=== PATIENT | male | born 1970 ===

== ENCOUNTER 2024-11-02 08:20 | Emergency (ER) | payer OTHER, SELFPAY ==
--- NOTE | ~2024-11-02 | XR_ITS ---
EXAMINATION: XR LEFT SHOULDER, RIGHT ANKLE, LUMBAR SPINE CLINICAL INFORMATION: Fall, pain. COMPARISON: None available. TECHNIQUE: 3 views left shoulder, 3 views right ankle, 3 views lumbar spine. FINDINGS: LEFT SHOULDER: Moderate degenerative changes in the acromioclavicular joint with joint space narrowing and hypertrophic change. Mild degenerative changes in the glenohumeral joint with inferior hypertrophic change. Glenohumeral alignment is preserved. LUMBAR SPINE: Minimal dextroscoliosis of the lumbar spine. Degenerative changes in the bilateral sacroiliac joints. Facet arthritis in the osw-uy-aehbl lumbar spine. Multilevel lumbar spondylosis with loss of disc space height most notable at L4-L5. Grade 1 retrolisthesis of L4 and L5. RIGHT ANKLE: Prominent plantar and posterior calcaneal spurring. Faint calcific/ossific densities along the plantar aspect of the calcaneus. Advanced degenerative changes with hypertrophic change along the dorsal aspect of the talonavicular joint. Degenerative changes on limited views of the midfoot and tarsometatarsal joints. Ankle joint effusion. Multiple ossific fragments inferior to the bilateral malleoli may represent avulsion fracture fragments of indeterminate age. Correlation with clinical exam recommended to determine further management. Base of the fifth metatarsal appears irregular on views provided, possibly related to positioning and dedicated views of the foot should be considered for further evaluation. XR/XR shoulder LT min 2V IMPRESSION: 1. Moderate degenerative changes in the left acromioclavicular joint and mild degenerative changes in the glenohumeral joint with inferior hypertrophic change. Glenohumeral alignment is preserved. 2. Degenerative changes in the bilateral sacroiliac joints. 3. Facet arthritis in the kyv-cl-qmhag lumbar spine. 4. Multilevel lumbar spondylosis with loss of disc space height most notable at L4-L5. Grade 1 retrolisthesis of L4 and L5. 5. Prominent plantar and posterior calcaneal spurring. Faint calcific/ossific densities along the plantar aspect of the calcaneus. 6. Advanced degenerative changes in the partially-imaged foot and ankle as detailed above. 7. Multiple ossific fragments inferior to the bilateral malleoli of the right ankle may represent avulsion fracture fragments of indeterminate age. Ankle joint effusion with soft tissue swelling. Correlation with clinical exam recommended to determine further management. 8. Base of the fifth metatarsal appears irregular on the views provided, possibly related to positioning and dedicated views of the foot should be considered for further evaluation. This study was presented today to November 02, 2024 for interpretation. Stat results provided at this time as requested by referring provider. Electronically signed by: Jess Abad MD 11/02/2024 09:41 AM [facility]
--- NOTE | ~2024-11-02 | CT_ITS ---
EXAMINATION: CT CERVICAL SPINE WITHOUT CONTRAST CLINICAL INFORMATION: Pain after falling. Head strike. COMPARISON: None available. TECHNIQUE: Thin section axial imaging with sagittal and coronal reformats. This CT examination was performed using dose optimization techniques as appropriate, variously including the following: *Automated exposure control *Adjustment of mA and/or kV according to patient size (this includes techniques or standardized protocols for targeted exams where dose is matched to indication/reason for exam; i.e. extremities or head) *Use of iterative reconstruction technique DLP: 589.33 mGy-cm FINDINGS: Degenerative changes observed predominantly at the C4-5 and C6-7 levels. Anterior spurring at C4-C6. There is no fracture or destructive process or alignment abnormality. Calcification of the posterior spinal ligament noted. This creates mild spinal stenosis from the C2-C4 level. No acute findings. The prevertebral soft tissues are normal. CT/CT cervical spine wo IV con IMPRESSION: No fracture. Fleischner guidelines were followed. Electronically signed by: Johnie Pathak MD 11/02/2024 12:57 PM [facility]
--- NOTE | ~2024-11-02 | XR_ITS ---
EXAMINATION: XR LEFT SHOULDER, RIGHT ANKLE, LUMBAR SPINE CLINICAL INFORMATION: Fall, pain. COMPARISON: None available. TECHNIQUE: 3 views left shoulder, 3 views right ankle, 3 views lumbar spine. FINDINGS: LEFT SHOULDER: Moderate degenerative changes in the acromioclavicular joint with joint space narrowing and hypertrophic change. Mild degenerative changes in the glenohumeral joint with inferior hypertrophic change. Glenohumeral alignment is preserved. LUMBAR SPINE: Minimal dextroscoliosis of the lumbar spine. Degenerative changes in the bilateral sacroiliac joints. Facet arthritis in the moa-tp-lfuwv lumbar spine. Multilevel lumbar spondylosis with loss of disc space height most notable at L4-L5. Grade 1 retrolisthesis of L4 and L5. RIGHT ANKLE: Prominent plantar and posterior calcaneal spurring. Faint calcific/ossific densities along the plantar aspect of the calcaneus. Advanced degenerative changes with hypertrophic change along the dorsal aspect of the talonavicular joint. Degenerative changes on limited views of the midfoot and tarsometatarsal joints. Ankle joint effusion. Multiple ossific fragments inferior to the bilateral malleoli may represent avulsion fracture fragments of indeterminate age. Correlation with clinical exam recommended to determine further management. Base of the fifth metatarsal appears irregular on views provided, possibly related to positioning and dedicated views of the foot should be considered for further evaluation. XR/XR ankle RT min 3V IMPRESSION: 1. Moderate degenerative changes in the left acromioclavicular joint and mild degenerative changes in the glenohumeral joint with inferior hypertrophic change. Glenohumeral alignment is preserved. 2. Degenerative changes in the bilateral sacroiliac joints. 3. Facet arthritis in the ezo-xr-dzlou lumbar spine. 4. Multilevel lumbar spondylosis with loss of disc space height most notable at L4-L5. Grade 1 retrolisthesis of L4 and L5. 5. Prominent plantar and posterior calcaneal spurring. Faint calcific/ossific densities along the plantar aspect of the calcaneus. 6. Advanced degenerative changes in the partially-imaged foot and ankle as detailed above. 7. Multiple ossific fragments inferior to the bilateral malleoli of the right ankle may represent avulsion fracture fragments of indeterminate age. Ankle joint effusion with soft tissue swelling. Correlation with clinical exam recommended to determine further management. 8. Base of the fifth metatarsal appears irregular on the views provided, possibly related to positioning and dedicated views of the foot should be considered for further evaluation. This study was presented today to November 02, 2024 for interpretation. Stat results provided at this time as requested by referring provider. Electronically signed by: Jess Abad MD 11/02/2024 09:41 AM [facility]
--- NOTE | ~2024-11-02 | CT_ITS ---
EXAMINATION: CT HEAD WITHOUT CONTRAST CLINICAL INFORMATION: Head strike. Fall COMPARISON: None available. TECHNIQUE: Contiguous axial imaging was performed from the skull base to vertex without intravenous administration of contrast. This CT examination was performed using dose optimization techniques as appropriate, variously including the following: *Automated exposure control *Adjustment of mA and/or kV according to patient size (this includes techniques or standardized protocols for targeted exams where dose is matched to indication/reason for exam; i.e. extremities or head) *Use of iterative reconstruction technique DLP: 844 mGy-cm FINDINGS: No intra or extra-axial fluid collection or hemorrhage, mass, or mass effect. Calvarium intact. CT/CT head/brain wo IV con IMPRESSION: No acute intracranial pathology. Electronically signed by: Johnie Pathak MD 11/02/2024 01:06 PM [facility]
--- NOTE | ~2024-11-02 | XR_ITS ---
EXAMINATION: XR LEFT SHOULDER, RIGHT ANKLE, LUMBAR SPINE CLINICAL INFORMATION: Fall, pain. COMPARISON: None available. TECHNIQUE: 3 views left shoulder, 3 views right ankle, 3 views lumbar spine. FINDINGS: LEFT SHOULDER: Moderate degenerative changes in the acromioclavicular joint with joint space narrowing and hypertrophic change. Mild degenerative changes in the glenohumeral joint with inferior hypertrophic change. Glenohumeral alignment is preserved. LUMBAR SPINE: Minimal dextroscoliosis of the lumbar spine. Degenerative changes in the bilateral sacroiliac joints. 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 Multilevel lumbar spondylosis with loss of disc space height most notable at L4-L5. Grade 1 retrolisthesis of L4 and L5. RIGHT ANKLE: Prominent plantar and posterior calcaneal spurring. Faint calcific/ossific densities along the plantar aspect of the calcaneus. Advanced degenerative changes with hypertrophic change along the dorsal aspect of the talonavicular joint. Degenerative changes on limited views of the midfoot and tarsometatarsal joints. Ankle joint effusion. Multiple ossific fragments inferior to the bilateral malleoli may represent avulsion fracture fragments of indeterminate age. Correlation with clinical exam recommended to determine further management. Base of the fifth metatarsal appears irregular on views provided, possibly related to positioning and dedicated views of the foot should be considered for further evaluation. XR/XR lumbar spine 2-3V IMPRESSION: 1. Moderate degenerative changes in the left acromioclavicular joint and mild degenerative changes in the glenohumeral joint with inferior hypertrophic change. Glenohumeral alignment is preserved. 2. Degenerative changes in the bilateral sacroiliac joints. 3. Facet arthritis in the [id number] lumbar spine. 4. Multilevel lumbar spondylosis with loss of disc space height most notable at L4-L5. Grade 1 retrolisthesis of L4 and L5. 5. Prominent plantar and posterior calcaneal spurring. Faint calcific/ossific densities along the plantar aspect of the calcaneus. 6. Advanced degenerative changes in the partially-imaged foot and ankle as detailed above. 7. Multiple ossific fragments inferior to the bilateral malleoli of the right ankle may represent avulsion fracture fragments of indeterminate age. Ankle joint effusion with soft tissue swelling. Correlation with clinical exam recommended to determine further management. 8. Base of the fifth metatarsal appears irregular on the views provided, possibly related to positioning and dedicated views of the foot should be considered for further evaluation. This study was presented today to November 02, 2024 for interpretation. Stat results provided at this time as requested by referring provider. Electronically signed by: Jess Abad MD 11/02/2024 09:41 AM [place]
[2024-11-02 08:25] VITALS: BP 155/83; PULSE 83; RESP 16; TEMP 36.6; O2SAT 96; BMI 33.7
[2024-11-02] MEDS: Acetaminophen 325 MG TABLET 975 MG PO (09:31)
--- NOTE | 2024-11-02 09:39 | ED.FALL ---
HPI - Fall General Chief Complaint: Fall Stated Complaint: Fall down stairs work inj Time Seen by Provider: 11/02/24 08:51 Source: patient and RN notes reviewed Mode of arrival: ambulatory Limitations: no limitations History of Present Illness ED Provider: Joanne Tavarez PA-C HPI Narrative: This is a [id number]-male, with a hx of crohn's disease and left ventricular hypertrophy on carvedilol, who presents to the ER with complaints of left shoulder pain, back pain, and right ankle pain status post mechanical fall which occurred at work today. Patient states that approximately 2 hours prior to his arrival, he accidentally was running down his stairs at work and slipped backwards, landing with his leg underneath him, and striking his left shoulder onto the stair. He states that he also struck the back of his head. He was wearing a hard had at the time. He reports no loss of consciousness. He does report that he felt slightly lightheaded after the fall. He states that he currently has a slight headache, denies reporting that this is the worst headache of his life. Denies any vision changes, chest pain, shortness of breath. He states that he has had intermittent tingling in his left shoulder since the injury. He also reports that he has had pain to his right ankle, states the pain worsens with movement and with weight-bearing. He was able to slightly bear weight on his right ankle after the fall. He has a history of previous injuries to his right ankle in the past. He is not on anticoagulation. No other complaints or concerns at this time. MD complaint: fall Onset (ago): day(s) Fall from: down stairs (#) (1) Fall witnessed: no Place fall occurred: work Loss of consciousness: none Prolonged down time: no Symptoms prior to fall: none Context: tripped/slipped Related Data Allergies Allergy/AdvReac Type Severity Reaction Status Date / Time No Known Allergies Allergy Verified 11/02/24 08:28 Review of Systems Review of Systems: Yes all other systems are reviewed and are negative Constitutional: Constitutional: Reports as per [facility] Social History Social History Advance Directives: No Advance Directives Information Provided: Yes Physical Exam Vital Signs: Vital Signs: Last Vital Signs Temp 97.7 F 11/02/24 14:43 Pulse 65 11/02/24 14:43 Resp 13 11/02/24 14:43 BP 138/73 11/02/24 14:43 Pulse Ox 99 11/02/24 14:43 O2 Del Method Room Air 11/02/24 14:43 BMI result Body Mass Index 33.7 Const: General: cooperative, comfortable and no acute distress Orientation/consciousness: patient oriented x3 Limitations: no limitations HEENT: Head: Yes normal to inspection, Yes normocephalic and Yes atraumatic Ears: hearing grossly normal bilaterally General nose exam: Normal external nose present Face and sinus: Yes normal facial exam Mouth: Normal oral and palatal mucosa present, oropharynx normal and moist mucous membranes Throat: Yes posterior oropharynx normal Eyes: General: appearance normal, both eyes and all related structures Eyelids: Yes eyelids normal Conjunctivae: conjunctivae normal Sclerae: sclerae normal Pupils: Equal, round and reactive pupils present EOM: EOMs intact bilaterally Neck: Neck: Yes normal visual inspection, Yes full ROM and Yes no lymphadenopathy Lymphatic: no lymphadenopathy noted Chest: Chest palpation & inspection: normal inspection of the chest Resp: Effort & Inspection: normal respiratory effort and able to speak in complete sentences Auscultation: clear to auscultation bilaterally, no crackles, no rales, no rhonchi and no wheezes Cardio: Rate: regular rate Rhythm: regular rhythm Heart sounds: S1 normal heart sound present and S2 normal heart sound present GI: Inspection: Yes normal to inspection Back/Spine/Pelvis: Other: Tenderness palpation along the lumbar midline spine and paraspinous muscles. Skin: General skin exam: no rashes or lesions noted Trauma: no lacerations or abrasions Wounds: no wounds Neuro: General: patient oriented x3 and moves all extremities Cranial nerves: Yes Equal, round and reactive pupils present Extrem: Other: Right ankle with tenderness palpation along the medial and lateral malleoli with moderate edema, patient has no tenderness throughout the entire foot, no 5th metatarsal pain. No overlying open wounds or sores. DP pulse 2 + Left shoulder with diffuse tenderness throughout shoulder joint, more pronounced along the right AC joint, good active range of motion, able to forward flex to about 160?, negative lift-off, negative empty can test. Strong radial pulse. General: Yes normal to inspection Right upper extremity: normal to inspection Left upper extremity: normal to inspection Right lower extremity: normal to inspection Left lower extremity: normal to inspection Course Reevaluation(s) Reevaluation #1: CT head and neck revealed no acute findings. Patient placed in posterior and stirrup splint. advised to be nonweightbearing until followup. Given strict return precautions. Also given orthopedic referral. Placed in crutches. Patient declines wanting pain medication at this time. Advised ibuprofen and Tylenol. Given strict return precautions. Patient discharge Time: 14:13 Medications Administered Discontinued Medications Generic Name Dose Route Start Last Admin Trade Name Miya PRN Reason Stop Dose Admin Acetaminophen 975 mg 11/02/24 09:16 11/02/24 09:31 Acetaminophen 325 Mg Tablet PO 11/02/24 09:17 975 mg ONCE ONE Administration Ondansetron HCl 4 mg 11/02/24 10:40 11/02/24 10:46 Ondansetron Odt 4 Mg Tab.Rapdis TRANSLINGU 11/02/24 10:41 4 mg ONCE ONE Administration Procedures Orthopedic Splinting/Casting Injury #1: Side: right Lower Extremity Immobilizer: posterior splint and stirrup splint Other Orthopedic Equipment: crutches Medical Decision Making Medical Decision Making MDM Narrative: This is a 54-year-old male who presents emergency department with complaints of left shoulder, right ankle, and back pain. On arrival, patient mildly hypertensive at 155/83. Patient did hit his head, no LOC. Given fall, will obtain head ct, cervical ct, xrays of shoulder. l spine and ankle xray. Differential Diagnosis Differential Diagnoses: The differential diagnosis associated with the presentation includes Fracture, contusion, closed head injury, SDH, ICH Admission/Observation Consideration of admission/observation: Escalation of care including admission/observation considered Radiology Impression Discussion of test interpretation with radiology: I have reviewed the radiologist's reading. Radiologist Impression: EXAMINATION: CT CERVICAL SPINE WITHOUT CONTRAST CLINICAL INFORMATION: Pain after falling. Head strike. COMPARISON: None available. TECHNIQUE: Thin section axial imaging with sagittal and coronal reformats. This CT examination was performed using dose optimization techniques as appropriate, variously including the following: *Automated exposure control *Adjustment of mA and/or kV according to patient size (this includes techniques or standardized protocols for targeted exams where dose is matched to indication/reason for exam; i.e. extremities or head) *Use of iterative reconstruction technique DLP: 589.33 mGy-cm FINDINGS: Degenerative changes observed predominantly at the C4-5 and C6-7 levels. Anterior spurring at C4-C6. There is no fracture or destructive process or alignment abnormality. Calcification of the posterior spinal ligament noted. This creates mild spinal stenosis from the C2-C4 level. No acute findings. The prevertebral soft tissues are normal. CT/CT cervical spine wo IV con IMPRESSION: No fracture. Fleischner guidelines were followed. Electronically signed by: Johnie Pathak MD 11/02/2024 12:57 PM EST RP Dictated By: Johnie Pathak MD [address] [address] [address] Scan Report Signed Patient: Tera Perales MR#: [id number] : 1970 Acct:[id number] Age/Sex: 54 / M ADM Date: 11/02/24 Loc: .ED Attending Dr: Ordering Physician: Joanne Tavarez Date of Service: 11/02/24 Procedure(s): CT head/brain wo IV con Accession Number(s): [id number] cc: Joanne Tavarez; Physician,None ~ EXAMINATION: CT HEAD WITHOUT CONTRAST CLINICAL INFORMATION: Head strike. Fall COMPARISON: None available. TECHNIQUE: Contiguous axial imaging was performed from the skull base to vertex without intravenous administration of contrast. This CT examination was performed using dose optimization techniques as appropriate, variously including the following: *Automated exposure control *Adjustment of mA and/or kV according to patient size (this includes techniques or standardized protocols for targeted exams where dose is matched to indication/reason for exam; i.e. extremities or head) *Use of iterative reconstruction technique DLP: 844 mGy-cm FINDINGS: No intra or extra-axial fluid collection or hemorrhage, mass, or mass effect. Calvarium intact. CT/CT head/brain wo IV con IMPRESSION: No acute intracranial pathology. Electronically signed by: Johnie Pathak MD 11/02/2024 01:06 PM EST RP Dictated By: Johnie Pathak MD cc: Henry Martinez MD; Physician,None ~ EXAMINATION: XR LEFT SHOULDER, RIGHT ANKLE, LUMBAR SPINE CLINICAL INFORMATION: Fall, pain. COMPARISON: None available. TECHNIQUE: 3 views left shoulder, 3 views right ankle, 3 views lumbar spine. FINDINGS: LEFT SHOULDER: Moderate degenerative changes in the acromioclavicular joint with joint space narrowing and hypertrophic change. Mild degenerative changes in the glenohumeral joint with inferior hypertrophic change. Glenohumeral alignment is preserved. LUMBAR SPINE: Minimal dextroscoliosis of the lumbar spine. Degenerative changes in the bilateral sacroiliac joints. Facet arthritis in the yxx-ju-fppjw lumbar spine. Multilevel lumbar spondylosis with loss of disc space height most notable at L4-L5. Grade 1 retrolisthesis of L4 and L5. RIGHT ANKLE: Prominent plantar and posterior calcaneal spurring. Faint calcific/ossific densities along the plantar aspect of the calcaneus. Advanced degenerative changes with hypertrophic change along the dorsal aspect of the talonavicular joint. Degenerative changes on limited views of the midfoot and tarsometatarsal joints. Ankle joint effusion. Multiple ossific fragments inferior to the bilateral malleoli may represent avulsion fracture fragments of indeterminate age. Correlation with clinical exam recommended to determine further management. Base of the fifth metatarsal appears irregular on views provided, possibly related to positioning and dedicated views of the foot should be considered for further evaluation. XR/XR shoulder LT min 2V IMPRESSION: 1. Moderate degenerative changes in the left acromioclavicular joint and mild degenerative changes in the glenohumeral joint with inferior hypertrophic change. Glenohumeral alignment is preserved. 2. Degenerative changes in the bilateral sacroiliac joints. 3. Facet arthritis in the wwb-pd-vgysn lumbar spine. 4. Multilevel lumbar spondylosis with loss of disc space height most notable at L4-L5. Grade 1 retrolisthesis of L4 and L5. 5. Prominent plantar and posterior calcaneal spurring. Faint calcific/ossific densities along the plantar aspect of the calcaneus. 6. Advanced degenerative changes in the partially-imaged foot and ankle as detailed above. 7. Multiple ossific fragments inferior to the bilateral malleoli of the right ankle may represent avulsion fracture fragments of indeterminate age. Ankle joint effusion with soft tissue swelling. Correlation with clinical exam recommended to determine further management. 8. Base of the fifth metatarsal appears irregular on the views provided, possibly related to positioning and dedicated views of the foot should be considered for further evaluation. This study was presented today to November 02, 2024 for interpretation. Stat results provided at this time as requested by referring provider. Electronically signed by: Jess Abad MD 11/02/2024 09:41 AM [facility] Dictated By: Jess Abad MD External Record Review External record reviewed: Inpatient record, Office record, Outpatient record, Prior outpatient labs, Prior outpatient radiology, Primary care record and Outside ED record Discharge Plan Discharge Clinical Impression: Closed head injury, Contusion of left shoulder, Contusion of back, Fall, Ankle fracture, bimalleolar, closed Patient Disposition: Home, Self-Care Instructions: Ankle Fracture (ED), Head Injury (ED), Contusion in Adults (ED) Additional Instructions: You were seen in the emergency department after a fall. Your x-ray of your right ankle is concerning for a possible ankle fracture. Please keep foot and ankle in splint until you follow-up with the resource specialist teacher, call to make an appointment. Do not remove splint, do not get splint wet. If you feel as though your splint is too tight, symptoms would be numbness and tingling into your toes, change in color, decreased sensation in your toes, please seek emergent care. Not bear weight on your right ankle/foot. Keep your foot and ankle elevated. Your CT of your head was normal. Your CT of your neck does show degenerative changes. Your shoulder also shows degenerative changes, You also have multiple levels of degeneration in your spine, most notable at L4-L5. You may alternate between ibuprofen and or Tylenol as needed for pain and symptoms. Physical and mental rest will be very important over the next several days. Drink plenty of fluids. You may continue to have intermittent headaches, nausea. Avoid prolonged screen time. Dark quiet rooms can also help with the healing process. If any new or worsening symptoms occur including but not limited to worsening pain, headache, dizziness, blurred vision, nausea, vomiting, weakness, please seek emergent care. Referrals: [facility] [Provider Group] Stand Alone Forms: Work/School Release Interventions: ED Discharge Assessment Last Done: 11/02/24 14:43 Discharge Date/Time: 11/02/24 14:44 Print Language: Citizen Of [place]
[2024-11-02] MEDS: Ondansetron ODT 4 MG TAB.RAPDIS TRANSLINGU (10:46)
[2024-11-02 12:02] VITALS: BP 138/73; PULSE 65; RESP 13; TEMP 36.5; O2SAT 99
[2024-11-02 14:43] VITALS: BP 138/73; PULSE 65; RESP 13; TEMP 36.5; O2SAT 99
== END 2024-11-02 14:44 | disposition home or self-care (01) ==
PROVIDERS: Emergency Provider Emergency Medicine
DX: S40.012A Contusion of left shoulder, initial encounter (principal); S30.0XXA Contusion of lower back and pelvis, initial encounter; S82.841A Displaced bimalleolar fracture of right lower leg, initial encounter for closed fracture; S09.90XA Unspecified injury of head, initial encounter; M25.512 Pain in left shoulder; R51.9 Headache, unspecified; M54.2 Cervicalgia; W10.9XXA Fall (on) (from) unspecified stairs and steps, initial encounter; Y93.89 Activity, other specified; Y92.89 Other specified places as the place of occurrence of the external cause; Y99.0 Civilian activity done for income or pay
CPT/HCPCS: 29515; 70450; 72100; 72125; 73030; 73610; 99283; 99284